=== PATIENT | female | born 1960 | race African-American/Black ===

== ENCOUNTER → 2022-02-25 | Day surgery (SDC) | payer OTHER | END | disposition home or self-care (01) | LOC: FMAMMOTONE 10:04 | PROVIDERS: ATTEND Family Medicine | PROC: 0HBU3ZX Excision of Left Breast, Percutaneous Approach, Diagnostic (ICD-10-PCS; principal; 2022-02-25) | DX: D24.2 Benign neoplasm of left breast (principal); N60.32 Fibrosclerosis of left breast; N60.82 Other benign mammary dysplasias of left breast; N64.89 Other specified disorders of breast; R92.0 Mammographic microcalcification found on diagnostic imaging of breast | CPT/HCPCS: 19081; 76098-TC-FY; 87899; 88305-TC; 88341-TC; 88342-TC; A4648 ==